=== PATIENT | female | born 1980 | race Two or more races ===

== ENCOUNTER 2024-04-12 06:25 | Day surgery (SDC) | payer OTHER ==
[~2024-04-12] VITALS: Ht 172.7 cm; Wt 108.9 kg
[~2024-04-12 06:25] MED LIST: CELEBREX100 M1 PO; LEVOCETIRIZINE D5 MG PO; LEVOTHYROXIN25 MC1 PO; PREDNISONE20 MG PO
[2024-04-12] MEDS ORDERED: ASPERCREME LIDOCA41 TD (06:43)
[2024-04-12] MEDS ORDERED: SODIUM CHLORIDE 0.9% 10 ML SYR ONE ×2 (06:56→07:06)
[2024-04-12] MEDS ORDERED: MIDAZOLAM HCL 2 MG/2 ML VIAL ONE (07:06)
[2024-04-12] MEDS ORDERED: LIDOCAINE HCL 1% (10MG/ML) 100 MG/10 ML MDV ONE (07:08)
[2024-04-12] MEDS ORDERED: BUPIVACAINE HCL PF 0.5 % 50 MG/10 ML SDV ONE (07:08)
[2024-04-12 08:23] VITALS: BP 118/82
== END 2024-04-12 08:04 | disposition home or self-care (01) ==
LOC: ORM 06:25
PROVIDERS: ATTEND Student in an Organized Health Care Education/Training Program
DX: M47.814 Spondylosis without myelopathy or radiculopathy, thoracic region (principal); G89.4 Chronic pain syndrome

== ENCOUNTER 2024-11-08 07:20 | Day surgery (SDC) | payer OTHER ==
[~2024-11-08] VITALS: Ht 172.7 cm; Wt 102.1 kg
[~2024-11-08 07:20] MED LIST changes: +ASPERCREME LIDOCA41 TD
[2024-11-08] MEDS ORDERED: SODIUM CHLORIDE 0.9% 10 ML SYR ONE ×2 (07:43→08:05)
[2024-11-08] MEDS ORDERED: LIDOCAINE MPF 1% (10 MG/ML) 5 ML VIAL ONE (07:48)
[2024-11-08] MEDS ORDERED: MIDAZOLAM HCL 2 MG/2 ML VIAL ONE (08:05)
[2024-11-08 09:20] VITALS: BP 118/72
== END 2024-11-08 08:40 | disposition home or self-care (01) ==
LOC: ORM 07:20
PROVIDERS: ATTEND Student in an Organized Health Care Education/Training Program
DX: M47.814 Spondylosis without myelopathy or radiculopathy, thoracic region (principal); M47.894 Other spondylosis, thoracic region; G89.4 Chronic pain syndrome